=== PATIENT | female | born 1965 | race Caucasian/White ===

== ENCOUNTER → 2021-11-19 | Outpatient (CLI) | payer OTHER, SELFPAY ==
[2021-11-19 12:38] VITALS: BP 93/59; PULSE 53; RESP 16; TEMP 36.2; O2SAT 98
[2021-11-19 12:51] VITALS: BP 93/59; PULSE 53; RESP 16; TEMP 36.2; O2SAT 98
== END | disposition home or self-care (01) ==
DX: Z45.2 Encounter for adjustment and management of vascular access device (principal)
CPT/HCPCS: 96523; A4216

== ENCOUNTER → 2021-12-03 | Outpatient (CLI) | payer OTHER, SELFPAY ==
--- NOTE | 2021-12-03 12:58 | NURSING ---
chemo pump removed at 1255. port flushed and de-accessed.
== END | disposition home or self-care (01) ==
LOC: MEDOUTP 12:27
DX: Z45.2 Encounter for adjustment and management of vascular access device (principal)
CPT/HCPCS: 96523; A4216

== ENCOUNTER → 2021-12-17 | Outpatient (CLI) | payer OTHER, SELFPAY | END | disposition home or self-care (01) | LOC: MEDOUTP 13:38 | DX: Z45.2 Encounter for adjustment and management of vascular access device (principal) | CPT/HCPCS: 96523; A4216 ==

== ENCOUNTER → 2021-12-31 | Outpatient (CLI) | payer OTHER, SELFPAY | END | disposition home or self-care (01) | LOC: MEDOUTP 12:26 | DX: Z45.2 Encounter for adjustment and management of vascular access device (principal) | CPT/HCPCS: 96523; A4216 ==

== ENCOUNTER → 2022-01-14 | Outpatient (CLI) | payer OTHER, SELFPAY | END | disposition home or self-care (01) | LOC: MEDOUTP 13:34 | DX: Z45.2 Encounter for adjustment and management of vascular access device (principal) | CPT/HCPCS: A4216 ==

== ENCOUNTER → 2022-01-28 | Outpatient (CLI) | payer OTHER, SELFPAY | END | disposition home or self-care (01) | LOC: MEDOUTP 13:27 | DX: Z45.2 Encounter for adjustment and management of vascular access device (principal) | CPT/HCPCS: 96523; A4216 ==

== ENCOUNTER → 2022-02-11 | Outpatient (CLI) | payer OTHER, SELFPAY ==
[2022-02-11 17:18] VITALS: BP 107/65; PULSE 52; RESP 16; TEMP 36; O2SAT 100; BMI 21.6
== END | disposition home or self-care (01) ==
LOC: MEDOUTP 02-18 08:42
DX: Z45.2 Encounter for adjustment and management of vascular access device (principal)
CPT/HCPCS: 96523; A4216

== ENCOUNTER → 2022-04-08 | Outpatient (CLI) | payer OTHER, SELFPAY ==
[2022-04-08 14:56] VITALS: BP 99/65; PULSE 61; RESP 16; TEMP 36.3; O2SAT 96
== END | disposition home or self-care (01) ==
DX: Z45.2 Encounter for adjustment and management of vascular access device (principal)
CPT/HCPCS: 96523; A4216

== ENCOUNTER → 2022-04-22 | Outpatient (CLI) | payer OTHER, SELFPAY ==
[2022-04-22 12:30] VITALS: BP 82/62; PULSE 60; RESP 16; TEMP 36.1; O2SAT 94; BMI 21.6
== END | disposition home or self-care (01) ==
LOC: MEDOUTP 12:09
DX: Z45.2 Encounter for adjustment and management of vascular access device (principal)
CPT/HCPCS: 96523; A4216

== ENCOUNTER 2022-05-06 13:00 | Outpatient (CLI) | payer OTHER, SELFPAY | END 2022-05-06 23:59 | disposition home or self-care (01) | DX: Z45.2 Encounter for adjustment and management of vascular access device (principal) | CPT/HCPCS: 96523; A4216 ==

== ENCOUNTER 2022-05-20 12:00 | Outpatient (CLI) | payer OTHER, SELFPAY ==
[2022-05-20 12:35] VITALS: BP 92/58; PULSE 52; RESP 16; TEMP 35.7; O2SAT 100
== END 2022-05-20 23:59 | disposition home or self-care (01) ==
DX: Z45.2 Encounter for adjustment and management of vascular access device (principal)
CPT/HCPCS: 96523; A4216